=== PATIENT | male | born 2000 | race Caucasian/White ===

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

== ENCOUNTER 2025-07-27 22:00 | Emergency (ER) | payer MEDICAID, OTHER ==
[~2025-07-27] VITALS: Ht 167.6 cm; Wt 63.6 kg
[~2025-07-27 22:00] MED LIST changes: -MOTRIN
[2025-07-27 22:33] VITALS: BP 120/63; PULSE 76; RESP 16; TEMP 98.1; O2SAT 99
== END 2025-07-28 01:10 | disposition home or self-care (01) ==
LOC: EMS 22:02
DX: S60.221A Contusion of right hand, initial encounter (principal); W22.8XXA Striking against or struck by other objects, initial encounter; Y93.89 Activity, other specified; Y92.89 Other specified places as the place of occurrence of the external cause; Y99.8 Other external cause status
CPT/HCPCS: 99283